=== PATIENT | female | born 1960 | race Caucasian/White ===

== ENCOUNTER 2020-03-18 06:48 | Emergency (ER) | payer MEDICARE ==
[~2020-03-18] VITALS: Ht 172.7 cm; Wt 92.0 kg
[2020-03-18] MEDS ORDERED: SIMVASTATIN10 MG PO (07:54)
[2020-03-18] MEDS ORDERED: PREMPRO1 TAB PO (07:54)
[2020-03-18] MEDS ORDERED: LEVOTHYROXIN200 MCG PO (07:55)
[2020-03-18] MEDS ORDERED: METOPROL TAR100 MG PO (07:56)
[2020-03-18] MEDS ORDERED: TRAZODONE100 MG PO (07:56)
[2020-03-18 08:01] LABS: URINE BILIRUBIN - DIPSTICK NEGATIVE (NEGATIVE); URINE BLOOD DIPSTICK SMALL (NEGATIVE); URINE COLOR YELLOW; URINE GLUCOSE - DIPSTICK NEGATIVE (NEGATIVE); URINE KETONE NEGATIVE (NEGATIVE); URINE LEUK ESTERASE NEGATIVE (NEGATIVE); URINE NITRITE - DIPSTICK NEGATIVE (Negative); URINE PH 5.5 (4.5-8.0); URINE PROTEIN - DIPSTICK NEGATIVE (NEG-TRACE); URINE SPECIFIC GRAVITY 1.025; URINE UROBILINOGEN - DIPSTICK 0.2 E.U./dL (0.2)
[2020-03-18 08:06] LABS: URINE WBC 0-2 WBC/hpf (0-5)
[2020-03-18 08:35] LABS: HEMATOCRIT 44.3 % (37.0-47.0); HEMOGLOBIN 14.2 g/dl (12.0-16.0); IMMATURE GRANULOCYTES 0.3 % (0.0-5.0); MEAN CORPUSCULAR HGB 31.4 pG CALC (26.0-32.0); MEAN CORPUSCULAR HGB CONC 32.1 g/dL CAL (32.0-36.0); NEUT# 4.14 thou/uL (2.00-7.15); RED BLOOD COUNT 4.52 mill/uL (4.20-5.60); RED CELL DISTRI WIDTH 11.9 % (11.5-15.5)
[2020-03-18 09:02] LABS: ALBUMIN 4.7 g/dL (3.2-5.0); ALKALINE PHOSPHATASE 89 u/l (38-126); ANION GAP 11 (6-22 (CALC)); BILIRUBIN, TOTAL 0.4 mg/dL (0.0-1.4); BUN 15 mg/dL (7-17); BUN/CREATININE RATIO 19 (12-20 (CALC)); CARBON DIOXIDE 27 mmol/l (22-30); CHLORIDE 104 mmol/l (95-108); CREATININE 0.8 mg/dL (0.5-1.0); GFR > 60 ML/MIN (>=60 (CALC)); GFR FOR AFR.AMER. > 60 ML/MIN (>=60 (CALC)); POTASSIUM 4.5 mmol/l (3.5-5.1); SGOT/AST 22 u/l (14-36); SODIUM 138 mmol/l (137-146); TOTAL PROTEIN 7.7 g/dL (6.3-8.2)
[2020-03-18 10:30] VITALS: BP 118/82
[2020-03-18] MEDS ORDERED: BACTRIM DS1 TAB PO (10:49)
[2020-03-18] MEDS ORDERED: PYRIDIUM200 MG PO (10:49)
== END 2020-03-18 10:30 | disposition home or self-care (01) ==
LOC: ED 06:48
PROVIDERS: Emergency Medicine
DX: N30.90 Cystitis, unspecified without hematuria (principal); I10 Essential (primary) hypertension; E03.9 Hypothyroidism, unspecified; F17.210 Nicotine dependence, cigarettes, uncomplicated